=== PATIENT | female | born 1990 | race Two or more races ===

== ENCOUNTER 2021-07-04 19:36 | Emergency (ER) | payer OTHER ==
[~2021-07-04] VITALS: Ht 165.1 cm; Wt 68.0 kg
[2021-07-04] MEDS ORDERED: TOBRAMYCIN-DEXAM5 ML OP (21:40)
== END 2021-07-04 21:55 ==
LOC: ER 19:36
DX: T15.01XA Foreign body in cornea, right eye, initial encounter (principal); S05.01XA Injury of conjunctiva and corneal abrasion without foreign body, right eye, initial encounter; X58.XXXA Exposure to other specified factors, initial encounter; Y92.89 Other specified places as the place of occurrence of the external cause